=== PATIENT | male | born 1945 | race Caucasian/White ===

== ENCOUNTER → 2022-11-04 | Outpatient (CLI) | payer MEDICARE ==
--- NOTE | 2022-11-04 17:59 | MR ---
EXAMINATION TYPE: MR brain wo con DATE OF EXAM: 11/04/2022 11:26 AM COMPARISON: None. CLINICAL INDICATION:Male, 77 years old with history of R41.3 AMNESIA; Memory loss TECHNIQUE: Multi planar, multi sequence imaging was performed through the brain including: T1, T2, In version recovery, Diffusion weighted imaging, and gradient echo imaging. No gadolinium was given. FINDINGS: At the foramen of [place] is a 8 mm high T1 signal suspected colloid cyst. There is dilation of ventri cular system looks proportional to cerebral atrophy. Minimal scattered foci of high T2 signal in the deep white matter. The mesial temporal lobes appear symmetric without evidence for atrophy. The buckley-white junctions, ventricular system, and cisterns appear unremarkable. Midline structures sh ow no abnormality. Diffusion-weighted imaging shows no evidence of restricted diffusion. The suscepti bility weighted images do not reveal any evidence for micro-hemorrhage. The bone marrow signal is within normal limits. Paranasal sinuses and mastoid air cells: No significant paranasal sinus disease. Visualized orbits: Orbital contents are intact. IMPRESSION: 1. No evidence of intracranial mass or acute/subacute infarct. 2. Minimal nonspecific white matter changes, likely secondary to small vessel ischemic disease. 3. 8 mm colloid cyst. No evidence for transependymal flow to suggest hydrocephalus. 4. Generalized cerebral atrophy with proportional dilation of the ventricular system.
== END | disposition home or self-care (01) ==
LOC: RADMRIMAIN 10:36
PROVIDERS: ATTEND Psychiatry & Neurology Neurology
DX: R90.82 White matter disease, unspecified (principal); G31.9 Degenerative disease of nervous system, unspecified; R41.3 Other amnesia
CPT/HCPCS: 70551